=== PATIENT | male | born 1940 | race Caucasian/White ===

== ENCOUNTER 2023-03-18 09:58 | Outpatient (CLI) | payer MEDICARE, BC, SELFPAY | END 2023-03-18 09:59 | disposition home or self-care (01) | LOC: AMB 03-19 09:29 | PROVIDERS: Visit Provider Emergency Medicine | DX: R07.89 Other chest pain (principal) | CPT/HCPCS: A0425; A0427 ==

== ENCOUNTER 2023-03-18 10:17 | Emergency (ER) | payer MEDICARE, BC, SELFPAY ==
[2023-03-18] VITALS (8 sets, daily range): BP systolic 157–197; BP diastolic 82–103; PULSE 45–66; RESP 14–18; TEMP 35.7; O2SAT 93–98; BMI 26.1
--- NOTE | 2023-03-18 10:30 | ED_ITS ---
HPI - General Adult General Date Seen: 03/18/23 Chief complaint: Chest Pain Stated complaint: chest pain Time Seen by Provider: 03/18/23 10:19 Source: patient and EMS Mode of arrival: EMS Limitations: no limitations History of Present Illness HPI narrative: Patient is an 83-year-old male with history of hypertension and prostate cancer who presents for evaluation of chest/epigastric pain. He says that they just left [employer], they were driving to get on the road [place] and he says within the span of 2 blocks he had 3 episodes of sharp pain which he localizes to the epigastrium lasting approximately 5-10 seconds each. He does not have any pain now and has not had any pain since those 3 episodes. He denies any history of similar pain. He says it was painful to take a deep breath but he did not feel short of breath. He denies any recent lower extremity swelling or pain. No fevers or cough. He did not have any radiating pain, no nausea or vomiting. Took his blood pressure medicines about an hour ago. He does not smoke, denies significant alcohol use. Remote history of prostate cancer but not on any current treatment. Denies any cardiac or pulmonary history otherwise. Family gave him 324 mg of aspirin. He is brought in by EMS, no treatment EN route. Related Data Home Medications Medication Instructions Recorded Confirmed aspirin 81 mg capsule 81 mg PO DAILY 03/18/23 03/18/23 atorvastatin 40 mg tablet 40 mg PO DAILY 03/18/23 03/18/23 clopidogrel 75 mg tablet 75 mg PO DAILY 03/18/23 03/18/23 losartan 50 mg tablet 50 mg PO DAILY 03/18/23 03/18/23 metoprolol succinate 25 mg 25 mg PO DAILY 03/18/23 03/18/23 tablet,extended release 24 hr Allergies Allergy/AdvReac Type Severity Reaction Status Date / Time shellfish derived Allergy Unknown Swelling Verified 03/18/23 13:24 of Lip/Tongue/Throat Review of Systems Status of ROS: Reports: 10 or more systems reviewed and unremarkable except as noted in History and below PFSH PFS Social History Smoking Status: Never smoker How often do you have a drink containing alcohol: never AUDIT-C Alcohol total score: 0 Non-prescribed substance use: denies use Exam Narrative: Exam Narrative: Vital signs as noted above. In general, an alert, well-appearing patient. Looks comfortable, breathing easily. Head: Normocephalic, atraumatic. Eyes: Pupils are equal reactive. Extraocular movements are full. Conjunctivae are normal. ENT: Mucous membranes are moist. Neck: Supple without lymphadenopathy. Heart: Regular rate and rhythm. No murmur or rub. Lungs: Clear bilaterally. No increased work of breathing, crackles or wheezes. Abdomen: Soft and nontender. No organomegaly. Extremities: Well perfused. No edema. No calf tenderness. Pulses intact. Neurologic: Patient is alert and oriented to person and place. Speech is fluent. Face is symmetric. Moves all extremities equally. Affect: Normal. Skin: Warm and dry. Well perfused. Const: Vital Signs, click to edit/add: Vital Signs - 24 hr 03/18/23 10:24 03/18/23 10:29 03/18/23 11:02 Temperature 96.3 F L Pulse Rate 53 L Pulse Rate [Pulse Oximeter] 66 Respiratory Rate 18 14 Blood Pressure 178/88 H Blood Pressure [Ri ght Upper Arm] 197/103 H Pulse Oximetry 98 98 93 Oxygen Delivery Me thod Room Air 03/18/23 11:31 03/18/23 12:02 Temperature Pulse Rate 45 L 46 L Pulse Rate [Pulse Oximeter] Respiratory Rate 16 16 Blood Pressure 163/83 H 157/83 H Blood Pressure [Ri ght Upper Arm] Pulse Oximetry 97 94 Oxygen Delivery Me thod Documenting provider has reviewed patient's vital signs: yes Course Course Hospital Course: On arrival, patient was maintained on oximetry and cardiac monitoring. An EKG done on arrival shows normal sinus rhythm, ventricular rate of 62 beats per minute. No acute ST segment changes. T-waves are unremarkable. Point of care troponin is pending. At this time he is asymptomatic, pain is not overly suggestive of acute coronary syndrome, other diagnostic considerations include pulmonary embolism, pneumonia, pleural effusion, dissection, biliary colic, gastritis, peptic ulcer disease among others. D-dimer returned normal for age at 0.68. Initial troponin was 0. COVID negative. LFTs unremarkable, lipase 75. CRP was less than 0.5. Metabolic panel and CBC were unremarkable. He has not had any further pain. Discussed with him at this time my suspicion for acute coronary syndrome is low based on his description of symptoms, normal EKG, negative troponin, but will go ahead and order a 2nd troponin at the 2 hour justin. Based on normal D-dimer, location of pain, absence of hypoxia, tachycardia etcetera I do not think this represents pulmonary embolism. Chest x-ray by my review did show widened mediastinum. Radiology read notes widened mediastinum which is exacerbated by some rotation, but they recommend additional imaging to clarify if there is concern for aortic pathology. He has remained pain-free, blood pressure has come down from an initial measurement of 197/103 to 157/83 without treatment. His D-dimer is norm al. My suspicion for dissection is relatively low, but I think a knee setting of an abnormal chest x-ray and as yet unexplained pain that it is reasonable to do a CT scan to further elucidate findings in the mediastinum. By my review, patient had a thoracic aortic aneurysm at about 4.5 cm. Low- density lesions noted in the liver. No other acute findings. Final radiology read is as follows:IMPRESSION: Ascending aortic aneurysm measuring up to 4.6 centimeters. Otherwise, no acute intrathoracic or intra-abdominal/pelvic abnormality, including aortic dissection. Prominent heart size with coronary artery calcifications. Few scattered low-density hepatic lesions, likely cysts. Recommend correlation with prior imaging if available. If not, consider follow-up with nonemergent outpatient ultrasound. Bilateral nonobstructing renal stones. Colonic diverticulosis without diverticulitis. He has remained pain-free. I think it is reasonable to let him go home. I have discussed the thoracic aneurysm with the patient and his family. I do not think this is directly related to his symptoms as there is no evidence of dissection. Etiology of symptoms is at this point unclear, did discuss with him if he has any recurrent or severe pain particularly if persistent, or if he has new symptoms such as fevers, vomiting, shortness of breath etcetera, he should return to an emergency department for re-evaluation. Otherwise, primary care follow-up. The aneurysm can be followed by primary care, and an ultrasound should be ordered to definitively diagnose the liver cysts. Vital Signs Vital signs: Initial Vital Signs Temperature 96.3 F L 03/18/23 10:24 Temperature Source Temporal Artery Scan 03/18/23 10:24 Pulse Rate 66 03/18/23 10:24 Pulse Rhythm Regular 03/18/23 10:24 Respiratory Rate 18 07/06/23 10:24 Blood Pressure 197/103 H 03/18/23 10:24 Blood Pressure Mean 134 H 03/18/23 10:24 Blood Pressure Position Supine 03/18/23 10:24 Pulse Oximetry 98 03/18/23 10:24 Oxygen Delivery Method Room Air 03/18/23 10:24 Vital Signs Temperature 96.3 F L 03/18/23 10:24 Pulse Rate 66 03/18/23 10:24 Respiratory Rate 18 03/18/23 10:24 Blood Pressure 197/103 H 03/18/23 10:24 Pulse Oximetry 98 03/18/23 10:24 Oxygen Delivery Method Room Air 03/18/23 10:24 Temperature 96.3 F L 03/18/23 10:24 Pulse Rate 46 L 03/18/23 12:02 Respiratory Rate 16 03/18/23 12:02 Blood Pressure 157/83 H 03/18/23 12:02 Pulse Oximetry 94 03/18/23 12:02 Oxygen Delivery Method Room Air 03/18/23 10:24 Medical Decision Making Lab Data Labs: Lab Results 03/18/23 03/18/23 03/18/23 Range/Units 10:30 10:35 10:45 WBC 5.94 (4.50-11.00) K/uL RBC 4.47 (4.30-5.90) m/uL Hgb 13.2 L (13.5-17.5) gm/dL Hct 39.6 (37.0-53.0) % MCV 89 (80-100) fL MCH 30 (26-34) pg MCHC 33 (32-36) gm/dL RDW Coeff of Bunny 13.1 (11.5-15.5) % Plt Count 258 (140-440) K/uL Neut % (Auto) 62.0 (42.0-72.0) % Lymph % (Auto) 26.1 (20-44) % [place] % (Auto) 8.8 (0.0-11.0) % Eos % (Auto) 2.0 (0.0-7.0) % Baso % (Auto) 0.3 (0.0-3.0) % Neut # (Auto) 3.68 (1.7-7.0) K/uL Lymph # (Auto) 1.55 (0.90-2.90) K/uL [place] # (Auto) 0.50 (0.00-0.90) K/UL Eos # (Auto) 0.12 (0.00-0.50) K/uL Baso # (Auto) 0.02 (0.00-0.30) K/uL D-Dimer Quant (PE/DVT) 0.68 H (0.00-0.50) ug/ml Sodium 139 (135-149) mmol/L Potassium 3.9 (3.6-5.1) mmol/L Chloride 105 (96-114) mmol/L Carbon Dioxide 28 (20-32) mmol/L BUN 18 (7-30) mg/dL Creatinine 0.8 (0.5-1.5) mg/dL Estimated Creat Clear 48.69 Estimated GFR 88 ml/min Glucose 129 H (60-115) mg/dL Calcium 9.0 (8.4-10.6) mg/dL Total Bilirubin 1.1 (0.1-1.5) mg/dL Direct Bilirubin 0.0 (0.0-0.5) mg/dL AST 26 (12-35) U/L ALT 22 (4-50) U/L Alkaline Phosphatase 75 (40-150) U/L C-Reactive Protein < 0.5 L (0.5-1.0) mg/dL NT-Pro-B Natriuret Pep 385 pg/mL Total Protein 6.8 (6.0-8.3) g/dL Albumin 3.9 (3.3-5.0) g/dL Lipase 75 (23-300) U/L SARS-CoV-2 (PCR) Negative SARS-CoV-2 (Negative) Influenza Type A (PCR) Negative PCR FLU A (Negative) Influenza Type B (PCR) Negative PCR FLU B (Negative) RSV (PCR) Negative PCR RSV (Negative) POC Troponin I 0.00 L (0.01-0.04) ng/ml 03/18/23 Range/Units 12:27 WBC (4.50-11.00) K/uL RBC (4.30-5.90) m/uL Hgb (13.5-17.5) gm/dL Hct (37.0-53.0) % MCV (80-100) fL MCH (26-34) pg MCHC (32-36) gm/dL RDW Coeff of Bunny (11.5-15.5) % Plt Count (140-440) K/uL Neut % (Auto) (42.0-72.0) % Lymph % (Auto) (20-44) % [place] % (Auto) (0.0-11.0) % Eos % (Auto) (0.0-7.0) % Baso % (Auto) (0.0-3.0) % Neut # (Auto) (1.7-7.0) K/uL Lymph # (Auto) (0.90-2.90) K/uL [place] # (Auto) (0.00-0.90) K/UL Eos # (Auto) (0.00-0.50) K/uL Baso # (Auto) (0.00-0.30) K/uL D-Dimer Quant (PE/DVT) (0.00-0.50) ug/ml Sodium (135-149) mmol/L Potassium (3.6-5.1) mmol/L Chloride (96-114) mmol/L Carbon Dioxide (20-32) mmol/L BUN (7-30) mg/dL Creatinine (0.5-1.5) mg/dL Estimated Creat Clear Estimated GFR ml/min Glucose (60-115) mg/dL Calcium (8.4-10.6) mg/dL Total Bilirubin (0.1-1.5) mg/dL Direct Bilirubin (0.0-0.5) mg/dL AST (12-35) U/L ALT (4-50) U/L Alkaline Phosphatase (40-150) U/L C-Reactive Protein (0.5-1.0) mg/dL NT-Pro-B Natriuret Pep pg/mL Total Protein (6.0-8.3) g/dL Albumin (3.3-5.0) g/dL Lipase (23-300) U/L SARS-CoV-2 (PCR) (Negative) Influenza Type A (PCR) (Negative) Influenza Type B (PCR) (Negative) RSV (PCR) (Negative) POC Troponin I 0.00 L (0.01-0.04) ng/ml Discharge Plan Discharge Clinical Impression: Atypical chest pain, Aortic aneurysm, thoracic Patient Disposition: Home, Self-Care Condition: Improved Instructions: Chest Pain (DC), Thoracic Aortic Aneurysm (ED) Additional Instructions: Workup today including troponins, D-dimer, chest x-ray and other labs is unremarkable. An obvious etiology for your symptoms cannot be found, but I do not see anything that suggests a dangerous cause for your chest pain today. I would recommend a follow-up with your primary doctor in the coming week for recheck. If you have severe persistent pain at any time, or develop new symptoms such as fever, vomiting, shortness of breath etcetera, you should be seen again in an ER. Your CT scan showed a thoracic aortic aneurysm which is 4.5 cm in diameter. You also had some probable liver cysts. The radiologist would recommend that you get an ultrasound to confirm the diagnosis of liver cysts. In terms of your aneurysm, this should be followed with your primary doctor; typically this will be followed with repeat imaging to make sure that it is stable. Prescriptions: No Action aspirin 81 mg capsule 81 mg PO DAILY losartan 50 mg tablet 50 mg PO DAILY atorvastatin 40 mg tablet 40 mg PO DAILY clopidogrel 75 mg tablet 75 mg PO DAILY metoprolol succinate 25 mg tablet extended release 24 hr 25 mg PO DAILY Stand Alone Forms: [employer] Info Instructions
[2023-03-18 10:44] LABS: Basophils Absolute Auto 0.02 K/uL (0.00-0.30); Basophils Percent Auto 0.3 % (0.0-3.0); Eosinophils Absolute Auto 0.12 K/uL (0.00-0.50); Hematocrit 39.6 % (37.0-53.0); Hemoglobin* 13.2 gm/dL (13.5-17.5); Immature Granulocytes Abs Auto 0.05 K/uL (0.00-0.30); Immature Granulocytes Pct Auto 0.8 %; Lymphocytes Absolute Auto 1.55 K/uL (0.90-2.90); Lymphocytes Percent Auto 26.1 % (20-44); Mean Corpuscular HGB Conc 33 gm/dL (32-36); Mean Corpuscular Hemoglobin 30 pg (26-34); Mean Corpuscular Volume 89 fL (80-100); Monocytes Percent Auto 8.8 % (0.0-11.0); Neutrophils Absolute Auto 3.68 K/uL (1.7-7.0); Platelet Count* 258 K/uL (140-440); RDW Coefficient of Variation % 13.1 % (11.5-15.5); Red Blood Count 4.47 m/uL (4.30-5.90); White Blood Count* 5.94 K/uL (4.50-11.00)
[2023-03-18 10:48] LABS: Slide Review Reflex No
[2023-03-18 11:01] LABS: Chloride* 105 mmol/L (96-114); Potassium* 3.9 mmol/L (3.6-5.1); Sodium* 139 mmol/L (135-149)
[2023-03-18 11:02] LABS: Albumin* 3.9 g/dL (3.3-5.0)
[2023-03-18 11:04] LABS: Blood Urea Nitrogen* 18 mg/dL (7-30); Carbon Dioxide* 28 mmol/L (20-32); Creatinine* 0.8 mg/dL (0.5-1.5); Est. Creatinine Clearance* 48.69; Estimated Glomerular Filt Rate 88 ml/min
[2023-03-18 11:05] LABS: Alkaline Phosphatase* 75 U/L (40-150); Aspartate Amino Transferase* 26 U/L (12-35); Bilirubin Total* 1.1 mg/dL (0.1-1.5); Glucose* 129 mg/dL (60-115); Total Protein* 6.8 g/dL (6.0-8.3)
[2023-03-18 11:06] LABS: Alanine Aminotransferase* 22 U/L (4-50); Lipase* 75 U/L (23-300)
[2023-03-18 11:11] LABS: C Reactive Protein* < 0.5 mg/dL (0.5-1.0)
[2023-03-18 11:15] LABS: NT Pro B Type NatriureticPept* 385 pg/mL
[2023-03-18 11:19] LABS: PCR FLU A Negative PCR FLU A (Negative); PCR FLU B Negative PCR FLU B (Negative); PCR RSV Negative PCR RSV (Negative)
[2023-03-18 11:22] LABS: SARS PCR* Negative SARS-CoV-2 (Negative)
[2023-03-18 11:24] LABS: D Dimer Quantitative* 0.68 ug/ml (0.00-0.50)
--- NOTE | 2023-03-18 11:39 | CRLHL7_ITS ---
For Patients: As a result of the Century Cures Act, medical imaging exams and procedure reports are released immediately into your electronic medical record. You may view this report before your referring provider. If you have questions, please contact your health care provider. INDICATION: Chest pain. TECHNIQUE: Chest 1 views. COMPARISON: None. FINDINGS: Cardiovascular and mediastinum: Widening of the mediastinum, accentuated by rotation. Normal heart size. Lungs and pleural spaces: Lungs are clear. No sign of infiltrate or mass. No sign of pleural effusion. No pneumothorax. Bones and soft tissues: No significant findings. IMPRESSION: Widening of the mediastinum, accentuated by rotation. If there is high concern for aortic injury, recommend repeat two view chest x-ray with appropriate position or CT scan for further evaluation. Dictated by Chinmay Lou MD @ 03/18/2023 12:33:53 PM (Electronically Signed)
--- NOTE | 2023-03-18 12:40 | CRLHL7_ITS ---
For Patients: As a result of the Century Cures Act, medical imaging exams and procedure reports are released immediately into your electronic medical record. You may view this report before your referring provider. If you have questions, please contact your health care provider. INDICATION: Chest pain. TECHNIQUE: CT chest without contrast and CT chest, abdomen and pelvis acquired with 100 cc Omnipaque 350 IV contrast, dissection protocol. COMPARISON: None. FINDINGS: CHEST: Cardiovascular structures: The unenhanced images demonstrate no evidence of aortic intramural thrombus. Ascending aortic aneurysm measuring up to 4.6 centimeters. No aortic dissection. Heart size is normal. Coronary artery calcifications. Mediastinum and hattie: No mass or adenopathy. Lungs and pleura: Lungs are clear. No pleural effusions. Chest wall and axilla: No mass or adenopathy. Bones: Right shoulder arthroplasty causing streak artifact. ABDOMEN AND PELVIS: Liver: Few scattered low-density lesions. Gallbladder and bile ducts: Unremarkable. Pancreas: Unremarkable. Spleen: Unremarkable. Adrenal glands: Unremarkable. Kidneys: Tiny hypodensities in both kidneys, too small to characterize. Bilateral nonobstructing renal stones. No hydronephrosis. GI tract: No bowel obstruction. Colonic diverticulosis without diverticulitis. Vascular structures: Abdominal aorta is normal in caliber without evidence of dissection. Mesenteric arteries are patent. Lymph nodes: Unremarkable. Miscellaneous: Unremarkable. No free air or significant free fluid. Pelvic Organs: Prominent prostate gland. Mildly distended bladder with circumferential wall thickening. Recommend correlation with urinalysis if UTI suspected Bones: Unremarkable for age. IMPRESSION: Ascending aortic aneurysm measuring up to 4.6 centimeters. Otherwise, no acute intrathoracic or intra-abdominal/pelvic abnormality, including aortic dissection. Prominent heart size with coronary artery calcifications. Few scattered low-density hepatic lesions, likely cysts. Recommend correlation with prior imaging if available. If not, consider follow-up with nonemergent outpatient ultrasound. Bilateral nonobstructing renal stones. Colonic diverticulosis without diverticulitis. Please note that all CT scans at this facility use dose modulation, iterative reconstruction, and/or weight-based dosing when appropriate to reduce radiation dose to as low as reasonably achievable. Dictated by Chinmay Lou MD @ 03/18/2023 2:06:43 PM (Electronically Signed)
--- NOTE | 2023-03-18 14:42 | ED.NURSE ---
Pt d/c'ed with CT reports and labs. Pt agrees to bring these results to PCP follow-up apt.
== END 2023-03-18 14:42 | disposition home or self-care (01) ==
PROVIDERS: Emergency Provider Emergency Medicine
DX: I71.21 Aneurysm of the ascending aorta, without rupture (principal)
CPT/HCPCS: 36415; 71045; 71270; 74177; 80048; 80076; 83690; 83880; 84484; 85025; 85379; 86140; 87631; 93005; 94761; 99284; 99285; Q9967